=== PATIENT | male | born 1965 | race Caucasian/White ===

== ENCOUNTER 2016-03-19 08:51 | Emergency (ER) | payer OTHER ==
--- NOTE | 2016-03-19 09:36 | ED CARDIAC/CP/PALPITATIONS ---
History of Present Illness General Chief Complaint: General Adult Stated Complaint: PALPATATIONS/PULLED MUSCLE Source: patient, family Exam Limitations: no limitations Vital Signs & Intake/Output Vital Signs & Intake/Output Vital Signs Date Time Temp Pulse Resp B/P Pulse O2 O2 Flow FiO2 Ox Delivery Rate 03/19 1108 98.0 62 17 164/88 100 Room Air 03/19 0855 97.8 60 16 178/90 98 Room Air Allergies Coded Allergies: aspirin (Intermediate, BLEEDING 03/19/16) Triage Note: TRIAGE; PT TO ED C/O CHEST PALPITATIONS. DENIES ANY CP. PT STATED THAT HE GETS A TWITCH EVERY SO OFTEN TO HIS LEFT CHEST AND HIS ARM SPASMS. Triage Nurses Notes Reviewed? yes HPI: 50-year-old male arrived to triage to room 5 for evaluation of a twitching, rushing sensation in the left side of his chest that started this morning. He reports that the past 2 days he has been out shoveling snow and he has had no symptoms of chest pain, shortness of breath, lightheadedness, dizziness or palpitations. This morning he woke up, after he had his first cup coffee, he developed this twitching sensation in the left side of his chest. He first described it has palpitations, then muscle twitching, then a rushing sensation in the left side of his chest and it is very hard for him to describe. Very intermittent. No reproducible symptoms. No alleviating or aggravating factors. He reports that he drinks an espresso type coffee, almost a poT in the morning but after his first cup he stopped. He then ate breakfast and the sensation continued so he came to the emergency department for evaluation. He denies any pain, pressure, shortness of breath, lightheadedness, dizziness, shortness of breath. He denies any fatigue. He quit smoking cigarettes 4 years ago, no family history of coronary artery disease, no hypertension, no diabetes possibility of borderline cholesterol. (JUAN JOVEL APRN) Past History Travel History Traveled to [place] past 21 day No Medical History Any Pertinent Medical History? see below for history Gastrointestinal: ulcerative colitis Other Medical Hx: former heroin addict Surgical History Surgical History: none Psychosocial History What is your primary language Lao Tobacco Use: Never used Family History Hx Contributory? No (JUAN JOVEL APRN) Review of Systems Review of Systems Constitutional: Reports: see HPI. EENTM: Denies: no symptoms. Respiratory: Denies: no symptoms. Cardiovascular: Reports: see HPI, palpitations. GI: Denies: no symptoms. Genitourinary: Denies: no symptoms. Musculoskeletal: Reports: see HPI. Skin: Denies: no symptoms. Neurological/Psychological: Denies: no symptoms. Hematologic/Endocrine: Denies: no symptoms. Immunologic/Allergic: Denies: no symptoms. (JUAN JOVEL APRN) Physical Exam Physical Exam General Appearance: well developed/nourished, no apparent distress, alert, awake , comfortable Head: atraumatic, normal appearance Eyes: Bilateral: normal appearance, PERRL, EOMI. Ears, Nose, Throat: normal pharynx, normal ENT inspection Neck: normal inspection, supple, full range of motion Respiratory: normal breath sounds, chest non-tender, no respiratory distress Cardiovascular: regular rate/rhythm Peripheral Pulses: 2+ radial (R), 2+ radial (L) Gastrointestinal: normal bowel sounds, soft, non-tender Back: normal inspection, normal range of motion Extremities: normal inspection, normal capillary refill, normal range of motion, no edema Neurologic/Psych: no motor/sensory deficits, awake, alert, oriented x 3, normal gait, normal mood/affect Skin: intact, normal color, warm/dry Core Measures ACS in differential dx? No Severe Sepsis Present: No Septic Shock Present: No (JUAN JOVEL APRN) Progress Differential Diagnosis: AMI, MUSCLE SPASM, ARRHYTHMIA Plan of Care: Orders Procedure Date/time Status THYROID STIMULATING HORMONE 03/19 935 Complete TROPONIN LEVEL 03/19 935 Complete MAGNESIUM 03/19 935 Complete COMPREHENSIVE METABOLIC PANEL 03/19 935 Complete CHOLESTEROL 03/19 935 Complete CBC WITHOUT DIFFERENTIAL 03/19 935 Complete EKG 03/19 0856 Active Laboratory Tests 03/19/16 0957: Anion Gap 10, Estimated GFR > 60, BUN/Creatinine Ratio 16.7, Glucose 91, Calcium 9.6, Magnesium 1.8, Total Bilirubin 0.9, AST 38, ALT 32, Alkaline Phosphatase 47 , Troponin I < 0.01, Total Protein 7.3, Albumin 4.3, Globulin 3.0, Albumin/ Globulin Ratio 1.4, Cholesterol 278 H, TSH 0.683, CBC w Diff NO MAN DIFF REQ, RBC 4.82, MCV 88.1, MCH 30.0, RDW 13.5, MPV 7.5, Gran % 54.8, Lymphocytes % 29.1 , Monocytes % 12.3 H, Eosinophils % 3.4, Basophils % 0.4, Absolute Granulocytes 2.5, Absolute Lymphocytes 1.3, Absolute Monocytes 0.6, Absolute Eosinophils 0.2, Absolute Basophils 0, PUBS MCHC 34.1 Initial ED EKG: SINUS BRADYCARDIA, SLIGHT ivcd, lvh, t-WAVE INVERSION v1 Repeat EKG: changed (ONLY v1) Comments: Discussed blood work with patient and his family. He will get cholesterol rechecked through his primary care provider and discuss treatment for hyperlipidemia. Since he has a history of ulcerative colitis and heroin addiction he does not want anything for pain, muscle spasm sensation including ibuprofen, Flexeril. He will follow up with his primary care provider this week. Blood work results given to patient. He will return to the emergency department for any change or worsening of symptoms. Less likely cardiac in nature more likely musculoskeletal. Discussed with Dr. HENRY (JUAN JOVEL APRN) Departure Departure Time of Disposition: 1121 Disposition: HOME OR SELF CARE Condition: Stable Clinical Impression Primary Impression: Muscle spasm Referrals: DANN MITCHELL MD (PCP/Family) Additional Instructions: Please follow up with Dr. Mitchell this week. Please discuss your total cholesterol and possible treatment plan with him. Please rest today use heat to the left side of your chest a few times a day. Departure Forms: Customer Survey General Discharge Information (JUAN JOVEL APRN) PA/FORENSIC ECONOMIST Co-Sign Statement Statement: ED Attending supervision documentation- x I saw and evaluated the patient. I have also reviewed all the pertinent lab results and diagnostic results. I agree with the findings and the plan of care as documented in the PA's/FORENSIC ECONOMIST's documentation. [] I have reviewed the ED Record and agree with the PA's/FORENSIC ECONOMIST's documentation. [] Additions or exceptions (if any) to the PAs/FORENSIC ECONOMIST's note and plan are summarized below: [] (MICHAEL HENRY MD) Critical Care Note Critical Care Note Critical Care Time: non-applicable (JUAN JOVEL APRN)
[2016-03-19 10:20] LABS: ABSOLUTE BASOPHIL COUNT 0 /CUMM (0.0-0.2); ABSOLUTE EOSINOPHIL COUNT 0.2 /CUMM (0.0-0.7); ABSOLUTE GRANULOCYTE CT 2.5 /CUMM (1.4-6.5); ABSOLUTE LYMPH COUNT 1.3 /CUMM (1.2-3.4); ABSOLUTE MONOCYTE COUNT 0.6 /CUMM (0.10-0.60); BASOPHIL % 0.4 % (0.0-2.0); EOSINOPHIL % 3.4 % (0-5); GRANULOCYTE % 54.8 % (42.2-75.2); HEMATOCRIT 42.5 % (42-52); MEAN CORPUSCULAR HGB CONC 34.1 G/DL (33.0-37.0); MEAN CORPUSCULAR VOLUME 88.1 FL (80.0-94.0); MEAN PLATELET VOLUME 7.5 FL (7.4-10.4); PLATELET COUNT 256 /CUMM (130-400); RBC DISTRIBUTION WIDTH 13.5 % (11.5-14.5); RED BLOOD CELL CT 4.82 /CUMM (4.70-6.10); WHITE BLOOD CELL COUNT 4.5 /CUMM (4.8-10.8)
[2016-03-19 11:08] VITALS: BP 164/88
== END 2016-03-19 11:29 ==
LOC: ERH 08:51
PROVIDERS: Nurse Practitioner Family
DX: M62.838 Other muscle spasm (principal)
CPT/HCPCS: 93005; 93010